=== PATIENT | male | born 1985 | race African-American/Black ===

== ENCOUNTER 2024-12-14 14:28 | Emergency (ER) | payer BC, MEDICAID ==
[~2024-12-14] VITALS: Ht 167.6 cm; Wt 73.0 kg
[2024-12-14 14:49] VITALS: O2SAT 99
[2024-12-14] MEDS: LIDOCAINE 5% PATCH TOP STA (17:44)
[2024-12-14] MEDS: KETOROLAC 30MG/ML VIAL IM ONE (17:44)
[2024-12-14] MEDS: CYCLOBENZAPRINE 10MG TABLET PO ONE (17:44)
[2024-12-14] MEDS ORDERED: LIDO700A30 TP (18:20)
[2024-12-14] MEDS ORDERED: CYCL10TA21 MT (18:20)
[2024-12-14] MEDS ORDERED: KETO10TA2 MT (18:20)
[2024-12-14 18:30] VITALS: BP 133/73; PULSE 71; RESP 18; TEMP 36.8; O2SAT 98
== END 2024-12-14 18:42 | disposition home or self-care (01) ==
LOC: ER 14:28
DX: M54.42 Lumbago with sciatica, left side (principal); Z79.899 Other long term (current) drug therapy
CPT/HCPCS: 99283; 96372; J1885